=== PATIENT | male | born 1975 | race Caucasian/White ===

== ENCOUNTER 2017-12-10 15:39 | Outpatient (CLI) | payer OTHER ==
[2017-12-10 15:51] LABS: MEAN CORPUSCULAR HEMOGLOBIN 31.3 pg (28.0-34.0); MEAN CORPUSCULAR VOLUME 91.7 fl (80.0-100.0)
[2017-12-10 16:11] LABS: eGFR (African) > 60; eGFR (Non-African) > 60
== END 2017-12-10 15:40 ==
LOC: LAB 15:39
PROVIDERS: ATTEND Family Medicine
DX: Z00.00 Encounter for general adult medical examination without abnormal findings (principal); Z13.29 Encounter for screening for other suspected endocrine disorder
CPT/HCPCS: 36415; 80053; 80061; 84443; 85027

== ENCOUNTER 2017-12-30 13:41 | Outpatient (CLI) | payer OTHER ==
[2017-12-30 14:20] LABS: eGFR (African) > 60; eGFR (Non-African) > 60
== END 2017-12-30 13:42 ==
LOC: LAB 13:41
PROVIDERS: ATTEND Family Medicine
DX: R79.89 Other specified abnormal findings of blood chemistry (principal)
CPT/HCPCS: 36415; 80053

== ENCOUNTER 2019-03-06 20:37 | Emergency (ER) | payer OTHER ==
[2019-03-06] MEDS ORDERED: 0.9 % SODIUM CHLORIDE 1,000 ML IV ONE (20:54)
--- NOTE | 2019-03-06 21:20 | ED Physician Documentation ---
Dizziness - HISTORIAN Historian: patient, spouse - HPI Stated Complaint: Near Syncope Chief Complaint: Near Syncope Additional Information: Patient is a 43-year-old male who presents to the ER with his . Patient states that he was in the kitchen at home when he got a little lightheaded. He was grilling and ate- but then he became dizzy again and was sweaty. He had numbness to his hands and got concerned. He admits to alcohol use the last couple of days celebrating birthdays and has been drinking mountain dew and soda- has not drank much water and has been in the heat- patient was positive with orthostatics. Timing: sudden onset Severity: moderate Associated Symptoms: sweating, light headedness Decreased Ability to Stand/ Walk: weak, walks w/o assistance Usually: walks w/o assistance Worsened By: changing position, standing position - ROS CONST: none EYES/ENT: none GI/: none MS/SKIN/LYMPH: none NEURO/PSYCH: tingling hands CVS/RESP: none - PAST HX Past History: other (anxiety) Cardiac Disease: none Surgeries/Procedures: other (inguinal hernias and knee) Immunizations: UTD Allergies/Adverse Reactions: Allergies Allergy/AdvReac Type Severity Reaction Status Date / Time No Known Allergies Allergy Verified 03/06/19 21:00 - SOCIAL HX Smoking History: non-smoker Alcohol Use: occasionally Drug Use: none - FAMILY HX Family History: none - VITAL SIGNS Vital Signs: Vital Signs Temp Pulse Resp BP Pulse Ox 98.9 F 84 24 163/98 97 03/06/19 20:39 03/06/19 21:15 03/06/19 21:15 03/06/19 21:15 03/06/19 21:15 - REVIEWED ASSESSMENTS Nursing Assessment Reviewed: Yes Vitals Reviewed: Yes ED Results Lab/Radiology - Orders Orders: ED Orders Category Date Time Status Orthostatics 1T Care 03/06/19 20:[address] IV Lock 1T Care 03/06/19 20:54 Active CBC/PLATELET/DIFF Routine Lab 03/06/19 21:04 Received CMP Routine Lab 03/06/19 21:04 Received 0.9 % Sodium Chloride [Normal Saline] 1,000 ml Med 03/06/19 20:54 Active IV Q1H EKG WITH COMPARISON Stat Ther 03/06/19 Ordered Dizziness Physical Exam - Physical Exam General Appearance: mild distress EENT: eye inspection normal, ENT inspection normal, pharynx normal, dry mucous membranes Neck: normal inspection, supple Respiratory: no respiratory distress, breath sounds nml, chest non-tender CVS: reg rate & rhythm, heart sounds normal, equal pulses Abdomen: soft, normal bowel sounds Skin: warm/dry, normal color Neuro: nml orientation, nml speech, nml cognition, mood/affect nml Extremities: non-tender, normal range of motion, no evidence of injury Cranial: nml as tested, no evidence of acute CVA Cerebellar: nml gait Sensorimotor: motor nml, sensation nml Discharge Clincal Impression: Dehydration Referrals: Dottie Palmer MD [Primary Care Provider] - 2 Days Additional Instructions: Increase water intake- 8 8oz glasses of water daily Avoid heat exposure for 24 hours Rest Follow up with PCP next week as needed Condition: Good Disposition: 01 HOME, SELF-CARE Decision to Admit: NO Decision Time: 21:46
[2019-03-06 21:35] VITALS: BP 142/75
[2019-03-07 06:27] LABS: eGFR (Non-African) > 60
[2019-03-07 06:28] LABS: BASOPHILS % 0.6 % (0.0-1.5); NEUTROPHILS # 6.9 # k/uL (1.4-7.7)
== END 2019-03-06 21:41 | disposition home or self-care (01) ==
LOC: ED 20:37
DX: E86.0 Dehydration (principal)
CPT/HCPCS: 80053; 85025; 96360; 99282; 99283; J7030; S1016